=== PATIENT | female | born 1985 | race Caucasian/White ===

== ENCOUNTER 2021-06-12 16:12 | Emergency (ER) | payer OTHER ==
[~2021-06-12] VITALS: Ht 149.9 cm; Wt 80.7 kg
[2021-06-12] MEDS ORDERED: AMBIEN 10 MG TA10 MG PO (16:45)
[2021-06-12 17:06] LABS: URINE BILIRUBIN NEGATIVE (Negative); URINE BLOOD NEGATIVE (Negative); URINE CLARITY CLEAR; URINE COLOR YELLOW; URINE GLUCOSE-RANDOM* NEGATIVE (Negative); URINE KETONES TRACE (Negative); URINE LEUKOCYTES-REFLEX NEGATIVE (Negative); URINE NITRITE-REFLEX NEGATIVE (Negative); URINE PROTEIN (DIPSTICK) NEGATIVE (Negative); URINE SPECIFIC GRAVITY >= 1.030 (1.005-1.035); URINE UROBILINOGEN 0.2 E.U./dl (0.2-1.0)
[2021-06-12 17:45] LABS: ANION GAP 11 mmol/L (7-16); BUN 13 mg/dL (7-18); CALCIUM 9.3 mg/dL (8.5-10.1); CHLORIDE 100 mmol/L (98-107); CO2 24 mmol/L (21-32); CREATININE 0.6 mg/dL (0.6-1.0); GLUCOSE 100 mg/dL (74-106); POTASSIUM 4.8 mmol/L (3.5-5.1); SODIUM 135 mmol/L (136-145)
[2021-06-12 17:53] LABS: ALBUMIN 3.7 g/dL (3.4-5.0); SGOT 125 U/L (15-37); SGPT 229 U/L (30-65); TOTAL BILIRUBIN 0.4 mg/dL (0.2-1.0); TOTAL PROTEIN 8.2 g/dL (6.4-8.2)
[2021-06-12 18:02] LABS: HEMATOCRIT 40.2 % (37.0-47.0); HEMOGLOBIN 13.5 gm/dL (12.0-15.0); MCH 29.2 pg (26.0-34.0); MCHC 33.4 g/dL (28.0-37.0); MCV 87.4 fL (80.0-100.0); RBC 4.61 mil/uL (4.20-5.00); RDW 13.3 % (10.5-14.5)
[2021-06-12] MEDS ORDERED: CARAFATE 1 GM TA1 G1 PO (19:34)
[2021-06-12 19:36] VITALS: BP 139/90
--- NOTE | 2021-06-13 07:07 | EKG ---
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 : 1985 Requested By: Melissa Suggs Order Number: [id number] MD: David Ibarra Measurements Intervals [place] Rate: 87 P: 20 MI: 138 QRS: 24 QRSD: 105 T: 19 QT: 365 QTc: 439 Interpretive Statements Sinus rhythm Low voltage, precordial leads RSR' in V1 or V2, right VCD or RVH Borderline T abnormalities, anterior leads No previous ECG available for comparison Electronically Signed On 06-13-2021 7:07:08 [employer]ACTIVE [employer]IA DES[employer] by David Ibarra [email or web address] <ELECTRONICALLY SIGNED> By: David Ibarra MD, [facility] 06/13/21 [id number] David Ibarra MD, FACC /EPI
== END 2021-06-12 19:45 | disposition home or self-care (01) ==
LOC: ER 16:12
PROVIDERS: Nurse Practitioner; Nurse Practitioner Family
DX: R07.89 Other chest pain (principal); Z20.822 Contact with and (suspected) exposure to COVID-19; R68.2 Dry mouth, unspecified; R53.1 Weakness; E78.00 Pure hypercholesterolemia, unspecified; Z79.899 Other long term (current) drug therapy